=== PATIENT | female | born 1985 | race Caucasian/White ===

== ENCOUNTER 2017-02-21 18:32 | Emergency (ER) | payer OTHER ==
[~2017-02-21] VITALS: Ht 172.7 cm; Wt 136.0 kg
[2017-02-21 18:50] VITALS: BP 121/77; PULSE 74; RESP 18; O2SAT 94
[2017-02-21 20:52] LABS: BASOPHILS % (AUTO) 0.1 % (0-3); EOSINOPHILS % (AUTO) 0.1 % (0-5); MONOCYTES % (AUTO) 2.2 % (4-12); Mean Corpuscular Hemoglobin 29.4 pg (27.0-35.0); Mean Corpuscular Volume 88.9 fL (81-100); NEUTROPHILS % (AUTO) 89.9 % (40-74); Platelet Count 302 bil/L (150-400)
--- NOTE | 2017-02-21 21:04 | ED.REPORT ---
HPI-General Illness Date of Service Feb 21, 2017 ED Provider: Ronn Thompson MD A 31 year old female with no pertinent medical history is brought to the ED via EMS complaining of dizziness. The pt woke this morning with this dizziness, and has been experiencing it since. This is accompanied by nausea and vomiting with mild hematemesis. The dizziness is relieved somewhat by laying down and exacerbated with movement. The pt also admits to a mild headache, but does not believe that this is related. She denies chest pain, shortness of breath, numbness, weakness or visual changes. Nursing Notes Stated Complaint: VERTIGO Chief Complaint: General Complaint Nursing Notes Reviewed: Yes Allergies: Coded Allergies: No Known Allergies (Unverified , 02/21/17) Scheduled Ondansetron ODT (Ondansetron ODT) 8 Mg Tab.rapdis 8 MG PO QID Scheduled PRN Meclizine HCl (Travel-Ease) 25 Mg Tablet 25 MG PO TID PRN PRN vertigo Prochlorperazine Maleate (Compazine Suppository) 25 Mg Supp.rect 25 MG RC Q8 PRN PRN For Nausea/Vomiting General Time Seen by MD: 21:03 Chief Complaint Dizziness Hx Obtained From: Patient, EMS Arrived By: Ambulance Sudden in Onset?: Yes Onset Occurred: 9 - 12 hours ago Symptom Duration: Since onset Recent Healthcare: No recent doctor visit, No recent hospitalization Similar Sx Previous: No Past Medical History Past Medical History none reported Past Surgical History none reported Smoking History Unknown if Ever Smoker Social History Other Social History: Good social support Ambulatory Status Independent Review of Systems Full Review of Systems Respiratory: Denies: Non-productive cough, Shortness of breath Cardiovascular: Denies: Chest pain GI: Reports: Hematemesis (mild), Nausea, Vomiting Musculoskeletal: Denies: Back pain, Neck pain Skin: Denies Rash Neurologic: Reports: Dizziness, Denies: Numbness, Vision change, Weakness Complete sys rev & neg: except as marked. Physical Exam Vital Signs Vital Signs Date Time Temp Pulse Resp B/P Pulse Ox O2 Delivery O2 Flow Rate FiO2 02/22/17 02:08 81 16 124/73 100 Room Air 02/22/17 00:18 36.8 81 16 124/73 100 Room Air 02/21/17 18:50 36.5 74 18 121/77 94 Room Air Initial VS: Reviewed General/Constitutional: Awake, Alert Head / Eyes: Atraumatic, Normocephalic, PERRL, EOMI ENT: Atraumatic, Airway patent, Mucous membranes moist Neck: Atraumatic, Supple, Full range of motion Respiratory / Chest: Atraumatic, Breath sounds NL, Breath sounds = bilat, No respiratory distress Cardiovascular: Heart rate NL, Regular rhythm, Heart sounds NL Abdomen: Atraumatic, Soft, Non-tender Back: Atraumatic, Full range of motion Upper Extremities Upper Extremity / MS: Atraumatic, Full range of motion Lower Extremity / Pelvis / MS: Atraumatic, Full range of motion Skin: Atraumatic, Color NL, No rash, Warm, Dry Neurologic: Oriented X3, Speech NL, No motor deficits, No sensory deficits, CN II - XII intact Psychiatric: Affect NL, Mood NL Interpretation & Diagnostics Lab Results Interpretation Result Diagram: 02/21/17203502/21/172035 Test 02/21/17 20:36 White Blood Count 14.4th/mm3 (3.8-10.1) Red Blood Count 4.87mil/mm3 (3.90-5.20) Hemoglobin 14.3g/dL (12.0-15.6) Hematocrit 43.3% (35.0-46.0) Mean Corpuscular Volume 88.9fL (81-100) Mean Corpuscular Hemoglobin 29.4pg (27.0-35.0) Mean Corpuscular Hemoglobin Concent 33.0% (32.0-37.0) Red Cell Distribution Width 13.5% (12.3-15.4) Platelet Count 302bil/L (150-400) Neutrophils (%) (Auto) 89.9% (40-74) Lymphocytes (%) (Auto) 7.4% (14-46) Monocytes (%) (Auto) 2.2% (4-12) Eosinophils (%) (Auto) 0.1% (0-5) Basophils (%) (Auto) 0.1% (0-3) Sodium Level 138mEq/L (134-144) Potassium Level 3.8mEq/L (3.5-5.2) Chloride Level 103mEq/L (97-108) Carbon Dioxide Level 19mmol/L (18-29) Blood Urea Nitrogen 10mg/dL (6-20) Creatinine 0.64mg/dL (0.57-1.00) Estimat Glomerular Filtration Rate 153mL/min (>59) Glucose Level 166mg/dL (60-99) Calcium Level 8.9mg/dL (8.5-10.1) Magnesium Level 1.9mg/dL (1.6-2.6) Total Bilirubin 0.4mg/dL (0.0-1.2) Aspartate Amino Transf (AST/SGOT) 16U/L (0-50) Alanine Aminotransferase (ALT/SGPT) 21U/L (0-32) Alkaline Phosphatase 91U/L (25-150) Total Protein 7.6g/dL (6.4-8.4) Albumin 4.2g/dL (3.4-5.0) Lipase 17U/L (13-60) Hold Hylton Top Tube Received (Received) Re-Eval/Medical Decision Med Decision/Clinical Course 31-year-old with acute onset of benign positional paroxysmal vertigo. Intact neurologically and fairly classic case, easily induced by head movement. Vomiting improved here with meds and Samson maneuvers discussed and provided in graphic form. Discharged in stable condition. Source of Hx: Old records Time of Eval: 00:00 Patient Status: Condition improved Re-Evaluation/Progress Note: Pt rechecked, who is resting and feeling significantly better. The diagnosis and plan for discharge are discussed. The pt understands and agrees with the plan. All questions are addressed at this time. Counseled Regarding: Diagnosis, Need for follow-up, When/why to return to ED Discharge & Departure Primary Impression: Benign paroxysmal positional vertigo Laterality: unspecified laterality Qualified Code: H81.10 - Benign paroxysmal vertigo, unspecified ear Additional Impression: Vomiting Vomiting type: unspecified Vomiting Intractability: non-intractable Nausea presence: with nausea Qualified Code: R11.2 - Nausea with vomiting, unspecified Disposition: Home Discharge Condition All VS Reviewed: Yes Condition: Stable Patient Instructions: Benign Paroxysmal Positional Vertigo (ED) Additional Instructions: See the enclosed information on vertigo and on the Samson maneuver. Follow-up with your doctor in the office. Meclizine three times daily for baseline vertigo relief. Zofran needed for nausea. Compazine suppository if additional needed for nausea. Drink clear fluids and maintain your hydration. Gatorade or Powerade or Pedialyte would be choices Referrals: [facility] Scribe Attestation Portions of this note were transcribed by Pro Reich. I, Dr. Thompson personally performed the history, physical exam and medical decision-making; I reviewed and confirmed the accuracy of the information in the transcribed note. copies to: [facility] Ronn Thompson MD Feb 21, 2017 21:04 PRO REICH Feb 21, 2017 21:11
[2017-02-21 21:12] LABS: Magnesium 1.9 mg/dL (1.6-2.6)
[2017-02-21] MEDS ORDERED: Promethazine Inj 25 MG in Dextrose 5%-Pha MIX 50 ML IV ONE (21:15)
[2017-02-21] MEDS ORDERED: 0.9% Sodium Chloride 1,000 ML IV ONE (21:15)
[2017-02-21] MEDS ORDERED: Haloperidol 5 mg/mL Inj IVPUSH ONE (22:45)
[2017-02-21] MEDS ORDERED: Pantoprazole 40 mg ER24 Tablet PO ONE (23:30)
[2017-02-22] MEDS ORDERED: _Ondansetron ODT 4 mg Tablet PO PRN (00:05)
[2017-02-22] MEDS ORDERED: PROC25SU30 RC (00:07)
[2017-02-22] MEDS ORDERED: ONDA8TAB10 PO (00:07)
[2017-02-22] MEDS ORDERED: [UNRECOGNIZED DRUG - CODE] PO (00:08)
[2017-02-22 00:18] VITALS: BP 124/73; PULSE 81; RESP 16; O2SAT 100
[2017-02-22 02:08] VITALS: BP 124/73; PULSE 81; RESP 16; O2SAT 100
== END 2017-02-22 01:35 | disposition home or self-care (01) ==
LOC: EDBD 18:32 → SED 18:32
DX: H81.10 Benign paroxysmal vertigo, unspecified ear (principal); R11.2 Nausea with vomiting, unspecified; F41.9 Anxiety disorder, unspecified
CPT/HCPCS: 36415; 80053; 83690; 83735; 85025; 96361; 96374; 96375; 99284; J1200; J1630; J2060; J2550; J7030